=== PATIENT | male | born 1940 | race Asian ===

== ENCOUNTER 2018-11-06 13:37 | Emergency (ER) | payer OTHER ==
[~2018-11-06] VITALS: Ht 167.6 cm; Wt 70.8 kg
[2018-11-06 13:46] VITALS: Ht 167.6 cm; Wt 70.8 kg
--- NOTE | 2018-11-06 15:36 | NUR ---
PT IN [facility] AWAITING MSE READING BOOK. REPORTS HE IS HERE FOR SOB FOR 6-7 MONTHS. "WHEN I WALK A LITTLE BIT I FEEL SHORT OF BREATH." PT STS "MAYBE IT'S WORSE THE LAST 3 DAYS." PT HAS FULL CLEAR SPEECH; BREATHING UNLABORED; NAD NOTED.
--- NOTE | 2018-11-06 15:45 | NUR ---
DR BORJAS AT BEDSIDE FOR MSE
[2018-11-06 16:01] LABS: BASOPHIL % 0.3 % (0-2); PLATELET COUNT 261 x10^3mcL (130-400)
[2018-11-06 16:04] LABS: RED CELL DISTRIBUTION WIDTH 14.6 % (11.5-14.5)
[2018-11-06 16:15] LABS: CALCIUM 9.2 mg/dL (8.5-10.1); CARBON DIOXIDE 28.5 mmol/L (21-32); CHLORIDE SERUM 106 mmol/L (98-107); CREATININE SERUM 1.1 mg/dL (0.7-1.3); GLUCOSE SERUM 97 mg/dL (74-106); POTASSIUM SERUM 4.4 mmol/L (3.5-5.1); SODIUM SERUM 143 mmol/L (136-145)
[2018-11-06 16:20] LABS: ALBUMIN 3.6 g/dL (3.4-5.0); ALKALINE PHOSPHATASE 50 U/L (46-116); ALT/SGPT 20 U/L (16-63); AST/SGOT 15 U/L (15-37); BILIRUBIN TOTAL 0.39 mg/dL (0.20-1.00); TOTAL PROTEIN, SERUM 7.2 g/dL (6.4-8.2)
--- NOTE | 2018-11-06 16:24 | NUR ---
WARM BLANKET GIVEN. CALL LIGHT IN REACH
[2018-11-06 17:07] VITALS: BP 124/71
--- NOTE | 2018-11-06 17:20 | NUR ---
PT VERBALIZED HE DOES NOT WANT TO BE ADMITTED DR BORJAS AWARE
--- NOTE | 2018-11-06 17:23 | NUR ---
DR BORJAS AT BEDSIDE SPEAKING TO PT REGARDING TEST RESULTS, POC, AND RECOMMENDED PT STAY IN HOSPITAL BUT PT STATED "I DON'T WANT TO STAY, I DON'T THINK I NEED TO."
--- NOTE | 2018-11-06 17:35 | NUR ---
PT APPEARS TO BE COMFORTABLE, AAOX4; BREATHING UNLABORED; NAD NOTED
--- NOTE | 2018-11-06 17:37 | NUR ---
THOUGH DR BORJAS ADVISED PT TO STAY D/T UNCLEAR CAUSE OF SOB, PT CONTINUED TO REFUSE TO BE ADMITTED. PT STATED "I'M JUST GOING TO SEE DR ALVARADO SOON I CAN." PT GIVEN ACI AND VERBALIZED UNDERSATNDING OF CALLING DR ALVARADO FOR [facility] AND TO TAKE TWO BABY ASA TABLETS EVERY DAY UNTIL BEING SEEN BY DR ALVARADO
== END 2018-11-06 17:37 | disposition left against medical advice (07) ==
LOC: ED 13:37 → DU 17:10 → ED 17:10
PROVIDERS: Emergency Medicine
DX: R06.00 Dyspnea, unspecified (principal); I24.9 Acute ischemic heart disease, unspecified; I10 Essential (primary) hypertension
CPT/HCPCS: 36415; 83880; G0378; Q0092

== ENCOUNTER 2018-11-16 19:24 | Emergency (ER) | payer OTHER ==
[~2018-11-16] VITALS: Ht 167.6 cm; Wt 71.7 kg
[2018-11-16 19:36] VITALS: Ht 167.6 cm; Wt 71.7 kg
[2018-11-16 20:43] LABS: BASOPHIL % 0.4 % (0-2); PLATELET COUNT 278 x10^3mcL (130-400); RED CELL DISTRIBUTION WIDTH 14.2 % (11.5-14.5)
[2018-11-16 20:56] LABS: CALCIUM 8.8 mg/dL (8.5-10.1); CARBON DIOXIDE 30.1 mmol/L (21-32); CHLORIDE SERUM 104 mmol/L (98-107); GLUCOSE SERUM 123 mg/dL (74-106); SODIUM SERUM 142 mmol/L (136-145)
[2018-11-16 21:01] LABS: ALBUMIN 3.5 g/dL (3.4-5.0); ALKALINE PHOSPHATASE 39 U/L (46-116); ALT/SGPT 27 U/L (16-63); AST/SGOT 17 U/L (15-37); BILIRUBIN TOTAL 0.5 mg/dL (0.20-1.00); TOTAL PROTEIN, SERUM 6.7 g/dL (6.4-8.2)
[2018-11-16 22:39] VITALS: BP 116/66
== END 2018-11-16 23:40 | disposition home or self-care (01) ==
LOC: ED 19:24
PROVIDERS: Emergency Medicine
DX: E87.6 Hypokalemia (principal); R06.02 Shortness of breath; I10 Essential (primary) hypertension
CPT/HCPCS: 36415; 83880; 85378; Q0092